=== PATIENT | male | born 1980 | race Caucasian/White ===

== ENCOUNTER 2017-02-22 02:00 | Emergency (ER) | payer SELFPAY ==
[~2017-02-22 02:00] MED LIST: CARDURA4 MG PO; CATAPRES-DPS0.1 MG PO
--- NOTE | 2017-02-25 20:39 | ER ---
ADMIT: 02/22/2017 RM/LOC: ER [facility] MR#: [id number] [place], [place] [id number] [address] [place] [address] Emergency Room Report SEX: M AGE: 37 : 1980 DATE: 02/22/2017 HISTORY OF PRESENT ILLNESS: The patient is a 37-year-old male with history of gastric bypass, Kameron-en-Y, hypertension, noncompliant complains of chest discomfort, hypertension, worsening of his Parkinson's disease. OBJECTIVE: Remarkable for nontoxic, afebrile, male, obvious tremor, slightly flushed faces, nontender chest wall, breath sounds and heart auscultation unremarkable. DIAGNOSTIC DATA: EKG shows sinus rhythm without ST-T or Q-wave change. Chest x-ray, negative. Normal CBC, CMP, lactic acid, CRP, CK-MB, troponin all normal. Dimer at 0.36, BNP 1.0. UA shows 1+ protein, 2+ ketone, 1 WBC, 5 RBC. EMERGENCY DEPARTMENT COURSE: The patient was given a liter of fluid, Toradol 30 mg IV push, nitroglycerin 0.4 mg sublingual x3, lowering blood pressure. Aspirin 324 mg chewed. The patient advised to follow up Dr. Rivas for antihypertensive therapy. Amilcar Adams MD/ hermelindal JOB #: [id number] CC: Amilcar Adams MD, Attending Physician Sky Figueroa MD, Family Physician Syk Figueroa MD
== END 2017-02-22 03:35 | disposition home or self-care (01) ==
LOC: ER 02:00
DX: R07.89 Other chest pain (principal); I10 Essential (primary) hypertension; Z91.19 Patient's noncompliance with other medical treatment and regimen; Z90.49 Acquired absence of other specified parts of digestive tract; Z90.89 Acquired absence of other organs; Z98.890 Other specified postprocedural states